=== PATIENT | female | born 1980 | race Caucasian/White ===

== ENCOUNTER 2021-11-25 08:54 | Outpatient (REF) | payer BC, SELFPAY ==
[2021-11-25 09:22] LABS: MANUAL DIFF FLAG NO
[2021-11-25 10:04] LABS: Basophils Absolute Auto 0.1 X10*3/uL (0.0-0.2); Eosinophils Absolute Auto 0.7 X10*3/uL (0.0-0.4); Eosinophils Percent Auto 12.4 % (0-4); Hemoglobin 13.2 g/dl (12.0-16.0); Imm Gran Abs Auto 0.01 X10*3/uL (0.00-0.03); Imm Gran Pct Auto 0.2 % (0.0-0.4); Lymphocytes Absolute Auto 1.7 X10*3/uL (1.2-4.9); Lymphocytes Percent Auto 28.4 % (20-40); Mean Corpuscular HGB Conc 32.2 g/dl (31.0-35.0); Mean Corpuscular Hemoglobin 30.4 pg (27.0-33.0); Mean Corpuscular Volume 94.5 fL (80.0-98.0); Mean Platelet Volume 9.9 fL (9.4-12.3); Monocytes Absolute Auto 0.5 X10*3/uL (0.1-1.2); Monocytes Percent Auto 7.8 % (2-11); Neutrophils Percent Auto 50.2 % (45-73); Platelet Count 322 X10*3/uL (160-400); Red Blood Count 4.34 X10*6/uL (4.20-5.50); Red Cell Distribution Width 11.8 % (11.0-16.0); White Blood Count 5.9 X10*3/uL (4.8-10.8)
[2021-11-25 10:10] LABS: INTERNATIONAL NORM RATIO 1.1 (0.9-1.1)
[2021-11-25 10:26] LABS: Alanine Aminotransferase 25 U/L (0-31); Albumin Level 4.2 g/dL (3.5-5.0); Alkaline Phosphatase 69 U/L (39-117); Anion Gap 12 (12-20); Aspartate Amino Transferase 28 U/L (5-31); Bilirubin Direct 0.3 mg/dL (0.0-0.5); Blood Urea Nitrogen 9 mg/dL (9-16); Calcium 9.5 mg/dL (8.4-10.2); Carbon Dioxide 25 mmol/L (22-29); Chloride 105 mmol/L (96-108); Cholesterol 235 mg/dL; Estimated Glomerular Filt Rate > 60; Glucose Fasting 86 mg/dL (60-99); HCG Quantitative < 2 mIU/mL; HDL Cholesterol 67 mg/dL; LDL Cholesterol Calculated 157 mg/dl; Potassium 4.1 mmol/L (3.3-5.1); Sodium 138 mmol/L (135-145); Total Protein 7.2 g/dL (6.5-8.0); Triglycerides 59 mg/dL
[2021-11-25 10:42] LABS: HBc Num1 0.07 S/CO (0.00-0.79); Hepatitis B Core Antibody Nonreactive (Nonreactive); ~HepC Num1 0.13 S/CO (0.00-0.79); ~Hepatitis B Surface Antibody REACTIVE (Nonreactive); ~Hepatitis C Antibody Nonreactive (Nonreactive)
[2021-11-25 11:17] LABS: HBsAGNum1 0.24 S/CO (0.00-0.99); HIV AB/AG Nonreactive (Nonreactive); HIV Num 1 0.07 S/CO (0.00-0.99); Hepatitis B Surface Antigen Negative (Negative)
[2021-11-27 08:41] LABS: Hepatitis A Antibody IgM 0.16 Index (0-0.79); ~Hepatitis A Antibody IgM Nonreactive (Nonreactive)
== END 2021-11-25 08:55 | disposition home or self-care (01) ==
LOC: HO.LAB 08:54
PROVIDERS: PCP Internal Medicine; Visit Provider Internal Medicine
DX: Z00.00 Encounter for general adult medical examination without abnormal findings (principal); Z13.0 Encounter for screening for diseases of the blood and blood-forming organs and certain disorders involving the immune mechanism; Z20.2 Contact with and (suspected) exposure to infections with a predominantly sexual mode of transmission; Z11.4 Encounter for screening for human immunodeficiency virus [HIV]
CPT/HCPCS: 36415; 80053; 80061; 80076; 82248; 84702; 85025; 85610; 86704; 86706; 86709; 86803; 87340; 87389

== ENCOUNTER 2021-12-03 09:10 | Outpatient (REF) | payer BC, SELFPAY ==
[2021-12-03 09:30] LABS: MANUAL DIFF FLAG NO
[2021-12-03 10:44] LABS: Basophils Absolute Auto 0.1 X10*3/uL (0.0-0.2); Basophils Percent Auto 0.7 % (0-2); Eosinophils Absolute Auto 0.7 X10*3/uL (0.0-0.4); Eosinophils Percent Auto 10.8 % (0-4); Hematocrit 40.7 % (37.0-47.0); Hemoglobin 13.3 g/dl (12.0-16.0); Imm Gran Abs Auto 0.01 X10*3/uL (0.00-0.03); Imm Gran Pct Auto 0.1 % (0.0-0.4); Lymphocytes Absolute Auto 1.7 X10*3/uL (1.2-4.9); Mean Corpuscular HGB Conc 32.7 g/dl (31.0-35.0); Mean Corpuscular Hemoglobin 30.7 pg (27.0-33.0); Mean Platelet Volume 10.3 fL (9.4-12.3); Monocytes Absolute Auto 0.4 X10*3/uL (0.1-1.2); Monocytes Percent Auto 6.3 % (2-11); Neutrophils Percent Auto 58.1 % (45-73); Platelet Count 306 X10*3/uL (160-400); Red Blood Count 4.33 X10*6/uL (4.20-5.50); Red Cell Distribution Width 11.8 % (11.0-16.0); White Blood Count 6.9 X10*3/uL (4.8-10.8)
[2021-12-03 10:52] LABS: Partial Thromboplastin Time 36.7 SEC (24.1-38.0)
[2021-12-03 11:23] LABS: Alanine Aminotransferase 29 U/L (0-31); Albumin Level 3.9 g/dL (3.5-5.0); Alkaline Phosphatase 75 U/L (39-117); Anion Gap 13 (12-20); Aspartate Amino Transferase 21 U/L (5-31); Bilirubin Total 0.6 mg/dL (0.0-1.0); Blood Urea Nitrogen 9 mg/dL (9-16); Calcium 9.4 mg/dL (8.4-10.2); Carbon Dioxide 24 mmol/L (22-29); Chloride 104 mmol/L (96-108); Cholesterol 220 mg/dL; Estimated Glomerular Filt Rate > 60; Glucose Fasting 87 mg/dL (60-99); HDL Cholesterol 60 mg/dL; LDL Cholesterol Calculated 147 mg/dl; Potassium 4.9 mmol/L (3.3-5.1); Sodium 136 mmol/L (135-145); Total Protein 6.9 g/dL (6.5-8.0); Triglycerides 66 mg/dL
== END 2021-12-03 09:11 | disposition home or self-care (01) ==
LOC: HO.LAB 09:10
PROVIDERS: PCP Internal Medicine; Visit Provider Internal Medicine
DX: Z01.818 Encounter for other preprocedural examination (principal); E11.9 Type 2 diabetes mellitus without complications
CPT/HCPCS: 36415; 80053; 80061; 85025; 85730

== ENCOUNTER 2023-04-09 08:54 | Outpatient (AMB) | payer BC, SELFPAY ==
--- NOTE | 2023-04-09 08:55 | A.OFFPC_ITS ---
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 Accompanied by: Self / Same As Patient Allergies No Known Allergies Allergy (Verified 04/09/23 08:56) Medication List - Last Reconciled 04/09/23 by Jesus Mott MD albuterol sulfate 1.25 mg (3 mL) inhalation QID PRN albuterol sulfate 90 mcg/actuation 2 puffs inhalation Q4-6H PRN 30 days methylprednisolone (Medrol (Titus)) PO PER PKG DIR nebulizers (Compact Compressor Nebulizer) As directed norgestimate-ethinyl estradiol 0.18/0.215/0.25 mg-25 mcg (Vik-Ur-Xjyvpb) 1 tab PO DAILY Tobacco use date assessed: 04/09/23 Dental Screening Dental Screen Date: 04/09/23 Did you have a dental visit in the last 12 months?: Yes Did you have a dental problem in the last 6 months where you did not have access to dental care?: No Was dental information given to patient?: Patient has dentist HPI Annual PE HPI Details asthma on rx [facility] Medical History (Updated 04/08/22 @ 10:26 by Jesus Mott MD) Asthma Physical exam Surgical History History of abdominoplasty History of tubal ligation Family History Mother No problems noted. Father No problems noted. Social History Housing: House Patient Tobacco Use Status: Never used Tobacco e-Cigarette/Vaping Use: Never Used Second Hand Smoke Exposure: No service: No Current occupational status: employed Current occupational exposures/hazards: No Cognitive needs: No Hearing needs: No Vision needs: Yes Questionnaire PHQ-9 Over the last 2 weeks, how often have you been bothered by any of the following problems? 1. Little interest or pleasure in doing things: not at all 2. Feeling down, depressed, or hopeless: not at all 3. Trouble falling or staying asleep, or sleeping too much: not at all 4. Feeling tired or having little energy: not at all 5. Poor appetite or overeating: not at all 6. Feeling bad about yourself - or that you are a failure or have let yourself or your family down: not at all 7. Trouble concentrating on things, such as reading the newspaper or watching television: not at all 8. Moving or speaking so slowly that other people could have noticed. Or the opposite - being so fidgety or restless that you have been moving around a lot more than usual: not at all 9. Thoughts that you would be better off or of hurting yourself in some way: not at all Total score: 0 Depression Screening Interpretation: Negative Source: Developed by Drs. Saulo Patino, Belinda Luna, Nikita Velarde and colleagues, with an educational darrion from [employer]. Thrive Questionnaire Date Thrive assessed: 04/09/23 I am a: Patient What is your living situation today?: I have a steady place to live Within the past 12 months, did the food you bought not last and you didn't have the money to get more?: Never true Within the past 12 months, did you worry whether your food would run out before you got money to buy more?: Never true Do you have trouble paying for medicines?: No Do you have trouble getting transportation to medical appointments?: No Do you have trouble paying your heating and electricity bill?: No Do you have trouble taking care of your child, family member or friend?: No Do you have trouble with day-to-day activities such as bathing, preparing meals, shopping, managing finances, etc.?: No Are you currently unemployed and looking for a job?: No Are you interested in more education?: No Currently or been in a relationship where the following occur: no concerns re ported AUDIT C Alcohol Use Questionnaire (AUDIT-C) 1. How often do you have a drink containing alcohol?: 2-4 times a month 2. How many drinks containing alcohol do you have on a typical day when you are drinking?: 3 or 4 3. How often do you have six or more drinks on one occasion?: Never Total Score: 3 Score Reviewed/Action Taken: Yes JETT-7 AMB Questionnaire JETT-7 Date JETT - 7 assessed: 04/09/23 Feeling nervous, anxious, or on edge: 0 = Not at all Not being able to stop or control worryin = Not at all Worrying too much about different things: 0 = Not at all Trouble relaxin = Not at all Being so restless that it is hard to sit still: 0 = Not at all Becoming easily annoyed or irritable: 0 = Not at all Feeling afraid as if something awful might happen: 0 = Not at all Total JETT-7 score (0-4 normal; 5-9 mild; 10-14 moderate; 15-21 severe): 0 Source: Developed by Drs. Saulo Patino, Belinda Luna, Nikita eVlarde and colleagues, with an educational darrion from [employer]. JETT-7 Assessment Billing JETT-7 Assessment Tool: JETT-7 Assessment 33329 Review of Systems Const Denies chills, Denies fatigue, Denies headache(s) and Denies weight loss Eyes Denies change in vision, Denies diplopia and Denies eye pain ENT Denies vertigo, Denies dizziness, Denies headache(s) and Denies nasal discharge Card Denies chest pain, Denies rapid heart rate and Denies dyspnea on exertion Resp Denies chest congestion, Denies cough, Denies pain with cough and Denies dyspnea on exertion GI Denies abdominal pain, Denies hematochezia and Denies change in bowel habits Musc Denies myalgias, Denies arthralgias and Denies joint swelling Skin/Breast Denies lesions and Denies unusual bruising Neuro Denies vertigo, Denies dizziness, Denies headache(s) and Denies focal weakness Endo Denies fatigue Physical exam (Primary Care) Vital Signs: Last Vital Signs Pulse 77 04/09/23 08:56 BP 122/70 04/09/23 08:56 Pulse Ox 99 04/09/23 08:56 Oxygen Delivery Method Room Air 04/09/23 08:56 BMI result Body Mass Index 26.0 Tobacco/Smoking Status: Tobacco use Status Tobacco use date assessed 04/09/23 04/09/23 09:02 Patient Tobacco Use Status Never used Tobacco 04/09/23 09:02 e-Cigarette/Vaping Use Never Used 04/09/23 09:02 PHQ-9: PHQ-9 Score PHQ-9: Total score 0 04/09/23 09:02 Depression Screening Interpretation: Negative Thrive Assessment: Date of Thrive Assessment Date Thrive assessed 04/09/23 04/09/23 09:02 Currently or been in a relationship where the following occur: no concerns reported Const General: cooperative, healthy appearing and no acute distress Orientation/consciousness: oriented to person, oriented to place and oriented to time HENMT Head: Yes normal to inspection, Yes normocephalic and Yes atraumatic Mouth: Normal oral and palatal mucosa present and tongue normal Throat: Yes posterior oropharynx normal and Yes uvula midline Eyes General: appearance normal, both eyes and all related structures Neck Neck: Yes normal visual inspection, Yes full ROM and Yes no lymphadenopathy Thyroid: Thyroid normal Carotids: normal carotid upstroke Chest Chest palpation & inspection: normal inspection of the chest Resp Effort & Inspection: normal respiratory effort and able to speak in complete sentences Auscultation: clear to auscultation bilaterally Cardio Jugular venous distension: no JVD Palpation: normal PMI Rate: regular rate Rhythm: regular rhythm Heart sounds: S1 normal heart sound present and S2 normal heart sound present GI Inspection: Yes normal to inspection Palpation (GI): Soft to palpation and No hepatosplenomegaly present Auscultation: normal bowel sounds General: Yes no CVA tenderness Back/Spine/Pelvis Back: no CVA tenderness Skin General skin exam: no rashes or lesions noted Neuro General: oriented to person, oriented to place and oriented to time Extrem General: Yes normal to inspection and Yes full ROM Assessment and Plan Assessment & Plan (1) Physical exam: Code(s): Z00.00 - Encounter for general adult medical examination without abnormal findings Plan: labs; sta le (2) Asthma: Code(s): J45.909 - Unspecified asthma, uncomplicated Plan: rx Orders: Orders Comprehensive [place]. Panel Fast Today N28.9 - Disorder of kidney and ureter, unspecified Lipid Panel Today E78.5 - Hyperlipidemia, unspecified Thyroid Stimulating Hormone Today E03.9 - Hypothyroidism, unspecified Complete Blood Count Auto Diff Today D64.9 - Anemia, unspecified Medications: New fluticasone propionate 110 mcg/actuation (Flovent HFA) 2 puffs inhalation BID 12 grams 8RF Refilled albuterol sulfate 1.25 mg (3 mL) inhalation QID PRN 75 mL 3RF shortness of breath or wheezing Coding Level of Care Code Est Pt Prev Care 40-64y(03237) Diagnoses Physical exam Z00.00 Asthma J45.909 Additional Codes JETT-7 Assessment Billing - JETT-7 Assessment Tool: JETT-7 Assessment 30585 ([id number]) PHQ-9 - 32567 - PHQ-9 Billing: Y ([id number])
[2023-04-09 08:56] VITALS: BP 122/70; PULSE 77; O2SAT 99; BMI 26.0
== END 2023-04-09 09:21 | disposition home or self-care (01) ==
PROVIDERS: PCP Internal Medicine; Visit Provider Internal Medicine
DX: Z00.00 Encounter for general adult medical examination without abnormal findings (principal); J45.909 Unspecified asthma, uncomplicated
CPT/HCPCS: 99396

== ENCOUNTER 2023-04-09 09:33 | Outpatient (REF) | payer BC, SELFPAY ==
[2023-04-09 09:44] LABS: MANUAL DIFF FLAG NO
[2023-04-09 10:01] LABS: Basophils Absolute Auto 0.1 X10*3/uL (0.0-0.2); Basophils Percent Auto 0.9 % (0-2); Eosinophils Absolute Auto 0.8 X10*3/uL (0.0-0.4); Eosinophils Percent Auto 10.2 % (0-4); Hematocrit 39.3 % (37.0-47.0); Hemoglobin 12.9 g/dl (12.0-16.0); Imm Gran Abs Auto 0.03 X10*3/uL (0.00-0.03); Imm Gran Pct Auto 0.4 % (0.0-0.4); Lymphocytes Absolute Auto 1.5 X10*3/uL (1.2-4.9); Mean Corpuscular HGB Conc 32.8 g/dl (31.0-35.0); Mean Corpuscular Hemoglobin 30.3 pg (27.0-33.0); Mean Corpuscular Volume 92.3 fL (80.0-98.0); Mean Platelet Volume 9.6 fL (9.4-12.3); Monocytes Absolute Auto 0.5 X10*3/uL (0.1-1.2); Monocytes Percent Auto 6.6 % (2-11); Neutrophils Absolute Auto 4.7 x10*3/uL (2.0-8.3); Neutrophils Percent Auto 61.9 % (45-73); Platelet Count 304 X10*3/uL (160-400); Red Blood Count 4.26 X10*6/uL (4.20-5.50); Red Cell Distribution Width 11.8 % (11.0-16.0); White Blood Count 7.6 X10*3/uL (4.8-10.8)
[2023-04-09 11:01] LABS: Alanine Aminotransferase 11 U/L (0-31); Albumin Level 3.9 g/dL (3.5-5.0); Alkaline Phosphatase 67 U/L (39-117); Anion Gap 12 (12-20); Aspartate Amino Transferase 13 U/L (5-31); Bilirubin Total 0.4 mg/dL (0.0-1.0); Blood Urea Nitrogen 11 mg/dL (9-16); Calcium 9.2 mg/dL (8.4-10.2); Carbon Dioxide 25 mmol/L (22-29); Chloride 108 mmol/L (96-108); Cholesterol 196 mg/dL; Estimated Glomerular Filt Rate > 60; Glucose Fasting 90 mg/dL (60-99); HDL Cholesterol 67 mg/dL; LDL Cholesterol Calculated 113 mg/dl; Potassium 4.7 mmol/L (3.3-5.1); Sodium 140 mmol/L (135-145); Total Protein 7.3 g/dL (6.5-8.0); Triglycerides 80 mg/dL
[2023-04-09 11:08] LABS: Thyroid Stimulating Hormone 0.81 uIU/mL (0.32-4.0)
== END 2023-04-09 09:34 | disposition home or self-care (01) ==
LOC: HO.LAB 09:33
PROVIDERS: PCP Internal Medicine; Visit Provider Internal Medicine
DX: D64.9 Anemia, unspecified (principal); N28.9 Disorder of kidney and ureter, unspecified; E03.9 Hypothyroidism, unspecified; E78.5 Hyperlipidemia, unspecified
CPT/HCPCS: 36415; 80053; 80061; 84443; 85025

== ENCOUNTER 2024-04-11 08:55 | Outpatient (AMB) | payer BC, SELFPAY ==
[2024-04-11 08:56] VITALS: BP 122/76; PULSE 76; BMI 26.7
--- NOTE | 2024-04-11 08:56 | MHC.PC.OV ---
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 Accompanied by: Self / Same As Patient Allergies No Known Allergies Allergy (Verified 04/11/24 08:57) Medication List - Last Reconciled 04/11/24 by Jesus Mott MD albuterol sulfate 1.25 mg (3 mL) inhalation QID PRN albuterol sulfate 90 mcg/actuation 2 puffs inhalation Q4-6H PRN 30 days fluticasone propionate 110 mcg/actuation (Flovent HFA) 2 puffs inhalation BID methylprednisolone (Medrol (Titus)) PO PER PKG DIR nebulizers (Compact Compressor Nebulizer) As directed norgestimate-ethinyl estradiol 0.18/0.215/0.25 mg-25 mcg (Fly-Va-Etattn) 1 tab PO DAILY scopolamine base 1 patch transdermal Q3D PRN Tobacco use date assessed: 04/11/24 Dental Screening Dental Screen Date: 04/11/24 Did you have a dental visit in the last 12 months?: Yes Did you have a dental problem in the last 6 months where you did not have access to dental care?: No Was dental information given to patient?: Patient has dentist HPI Annual Exam HPI Details asthma controlled [facility] Medical History (Updated 04/08/22 @ 10:26 by Jesus Mott MD) Asthma Physical exam Surgical History History of abdominoplasty History of tubal ligation Family History Mother No problems noted. Father No problems noted. Social History Housing: House Patient Tobacco Use Status: Never used Tobacco Tobacco use type: Cigarette e-Cigarette/Vaping Use: Never Used Second Hand Smoke Exposure: No service: No Current occupational status: employed Current occupational exposures/hazards: No Cognitive needs: No Hearing needs: No Vision needs: Yes Questionnaire PHQ-9 Over the last 2 weeks, how often have you been bothered by any of the following problems? 1. Little interest or pleasure in doing things: not at all 2. Feeling down, depressed, or hopeless: not at all 3. Trouble falling or staying asleep, or sleeping too much: not at all 4. Feeling tired or having little energy: not at all 5. Poor appetite or overeating: not at all 6. Feeling bad about yourself - or that you are a failure or have let yourself or your family down: not at all 7. Trouble concentrating on things, such as reading the newspaper or watching television: not at all 8. Moving or speaking so slowly that other people could have noticed. Or the opposite - being so fidgety or restless that you have been moving around a lot more than usual: not at all 9. Thoughts that you would be better off or of hurting yourself in some way: not at all Total score: 0 Depression Screening Interpretation: Negative Depression Screening Done: Yes 19149 - PHQ-9 Billing: Yes Source: Developed by Drs. Saulo Patino, Belinda Luna, Nikita Velarde and colleagues, with an educational darrion from [employer]. Thrive Questionnaire Date Thrive assessed: 04/11/24 I am a: Patient What is your living situation today?: I have a steady place to live Within the past 12 months, did the food you bought not last and you didn't have the money to get more?: Never true Within the past 12 months, did you worry whether your food would run out before you got money to buy more?: Never true Do you have trouble paying for medicines?: No Do you have trouble getting transportation to medical appointments?: No Do you have trouble paying your heating and electricity bill?: No Do you have trouble taking care of your child, family member or friend?: No Do you have trouble with day-to-day activities such as bathing, preparing meals, shopping, managing finances, etc.?: No Are you currently unemployed and looking for a job?: No Are you interested in more education?: No THRIVE Score: 0 AUDIT C Alcohol Use Questionnaire (AUDIT-C) 1. How often do you have a drink containing alcohol?: 2-4 times a month 2. How many drinks containing alcohol do you have on a typical day when you are drinking?: 3 or 4 3. How often do you have six or more drinks on one occasion?: Never Total Score: 3 Score Reviewed/Action Taken: Yes JETT-7 AMB Questionnaire JETT-7 Date JETT - 7 assessed: 04/11/24 Feeling nervous, anxious, or on edge: 0 = Not at all Not being able to stop or control worryin = Not at all Worrying too much about different things: 0 = Not at all Trouble relaxin = Not at all Being so restless that it is hard to sit still: 0 = Not at all Becoming easily annoyed or irritable: 0 = Not at all Feeling afraid as if something awful might happen: 0 = Not at all Total JETT-7 score (0-4 normal; 5-9 mild; 10-14 moderate; 15-21 severe): 0 Source: Developed by Drs. Saulo Patino, Belinda Luna, Nikita Velarde and colleagues, with an educational darrion from [employer]. JETT-7 Assessment Billing JETT-7 Assessment Tool: JETT-7 Assessment 42334 Review of Systems Const Denies chills, Denies fatigue, Denies headache(s) and Denies weight loss Eyes Denies change in vision, Denies diplopia and Denies eye pain ENT Denies vertigo, Denies dizziness, Denies headache(s) and Denies nasal discharge Card Denies chest pain, Denies rapid heart rate and Denies dyspnea on exertion Resp Denies chest congestion, Denies cough, Denies pain with cough and Denies dyspnea on exertion GI Denies abdominal pain, Denies hematochezia and Denies change in bowel habits Musc Denies myalgias, Denies arthralgias and Denies joint swelling Skin/Breast Denies lesions and Denies unusual bruising Neuro Denies vertigo, Denies dizziness, Denies headache(s) and Denies focal weakness Endo Denies fatigue Physical exam (Primary Care) Vital Signs: Last Vital Signs Pulse 76 04/11/24 08:56 BP 122/76 04/11/24 08:56 BMI result Body Mass Index 26.7 Tobacco/Smoking Status: Tobacco use Status Tobacco use date assessed 04/11/24 04/11/24 09:04 Patient Tobacco Use Status Never used Tobacco 04/11/24 09:04 Tobacco use type Cigarette 04/11/24 09:04 e-Cigarette/Vaping Use Never Used 04/11/24 09:04 PHQ-9: PHQ-9 Score PHQ-9: Total score 0 04/11/24 09:04 Depression Screening Interpretation: Negative Thrive Assessment: Date of Thrive Assessment Date Thrive assessed 04/11/24 04/11/24 09:04 Const General: cooperative, healthy appearing and no acute distress Orientation/consciousness: oriented to person, oriented to place and oriented to time HENMT Head: Yes normal to inspection, Yes normocephalic and Yes atraumatic Mouth: Normal oral and palatal mucosa present and tongue normal Throat: Yes posterior oropharynx normal and Yes uvula midline Eyes General: appearance normal, both eyes and all related structures Neck Neck: Yes normal visual inspection, Yes full ROM and Yes no lymphadenopathy Thyroid: Thyroid normal Carotids: normal carotid upstroke Chest Chest palpation & inspection: normal inspection of the chest Resp Effort & Inspection: normal respiratory effort and able to speak in complete sentences Auscultation: clear to auscultation bilaterally Cardio Jugular venous distension: no JVD Palpation: normal PMI Rate: regular rate Rhythm: regular rhythm Heart sounds: S1 normal heart sound present and S2 normal heart sound present GI Inspection: Yes normal to inspection Palpation (GI): Soft to palpation and No hepatosplenomegaly present Auscultation: normal bowel sounds General: Yes no CVA tenderness Back/Spine/Pelvis Back: no CVA tenderness Skin General skin exam: no rashes or lesions noted Neuro General: oriented to person, oriented to place and oriented to time Extrem General: Yes normal to inspection and Yes full ROM Assessment and Plan Assessment & Plan (1) Physical exam: Code(s): Z00.00 - Encounter for general adult medical examination without abnormal findings Plan: stable; do labs (2) Asthma: Code(s): J45.909 - Unspecified asthma, uncomplicated Plan: stable; same rx Orders: Orders Lipid Panel Today Z13.220 - Encounter for screening for lipoid disorders Complete Blood Count Auto Diff Today Z13.0 - Encounter for screening for diseases of the blood and blood-forming organs and certain disorders involving the immune mechanism Comprehensive [place]. Panel Fast Today Z13.9 - Encounter for screening, unspecified Medications: Refilled albuterol sulfate 90 mcg/actuation 2 puffs inhalation Q4-6H 30 days PRN 8.5 grams 5RF shortness of breath or wheezing Coding Level of Care Code Est Pt Prev Care 40-64y(92656) Diagnoses Physical exam Z00.00 Asthma J45.909 Additional Codes JETT-7 Assessment Billing - JETT-7 Assessment Tool: JETT-7 Assessment 87673 ([id number])
== END 2024-04-11 09:17 | disposition home or self-care (01) ==
PROVIDERS: PCP Internal Medicine; Visit Provider Internal Medicine
DX: Z00.00 Encounter for general adult medical examination without abnormal findings (principal); J45.909 Unspecified asthma, uncomplicated
CPT/HCPCS: 99396

== ENCOUNTER 2024-04-11 09:22 | Outpatient (REF) | payer BC, SELFPAY ==
[2024-04-11 09:34] LABS: MANUAL DIFF FLAG NO
[2024-04-11 10:08] LABS: Basophils Absolute Auto 0.1 X10*3/uL (0.0-0.2); Basophils Percent Auto 1.1 % (0-2); Eosinophils Absolute Auto 0.5 X10*3/uL (0.0-0.4); Eosinophils Percent Auto 7.9 % (0-4); Hematocrit 36.1 % (37.0-47.0); Hemoglobin 12.1 g/dl (12.0-16.0); Imm Gran Abs Auto 0.02 X10*3/uL (0.00-0.03); Imm Gran Pct Auto 0.3 % (0.0-0.4); Lymphocytes Absolute Auto 2.1 X10*3/uL (1.2-4.9); Lymphocytes Percent Auto 31.2 % (20-40); Mean Corpuscular HGB Conc 33.5 g/dl (31.0-35.0); Mean Corpuscular Hemoglobin 31.2 pg (27.0-33.0); Mean Platelet Volume 10.1 fL (9.4-12.3); Monocytes Absolute Auto 0.5 X10*3/uL (0.1-1.2); Monocytes Percent Auto 7.4 % (2-11); Neutrophils Absolute Auto 3.4 x10*3/uL (2.0-8.3); Neutrophils Percent Auto 52.1 % (45-73); Platelet Count 249 X10*3/uL (160-400); Red Blood Count 3.88 X10*6/uL (4.20-5.50); Red Cell Distribution Width 11.9 % (11.0-16.0); White Blood Count 6.6 X10*3/uL (4.8-10.8)
[2024-04-11 10:48] LABS: Alanine Aminotransferase 16 U/L (0-31); Albumin Level 3.5 g/dL (3.5-5.0); Alkaline Phosphatase 58 U/L (39-117); Anion Gap 10 (12-20); Aspartate Amino Transferase 20 U/L (5-31); Bilirubin Total 0.6 mg/dL (0.0-1.0); Blood Urea Nitrogen 10 mg/dL (9-16); Calcium 8.9 mg/dL (8.4-10.2); Carbon Dioxide 25 mmol/L (22-29); Chloride 107 mmol/L (96-108); Cholesterol 182 mg/dL (<200); Estimated Glomerular Filt Rate > 60; Glucose Fasting 87 mg/dL (60-99); HDL Cholesterol 64 mg/dL (>40); LDL Cholesterol Calculated 103 mg/dL (<100); Potassium 3.8 mmol/L (3.3-5.1); Sodium 138 mmol/L (135-145); Total Protein 6.5 g/dL (6.5-8.0); Triglycerides 78 mg/dL (<150)
== END 2024-04-11 09:23 | disposition home or self-care (01) ==
LOC: HO.LAB 09:22
PROVIDERS: PCP Internal Medicine; Visit Provider Internal Medicine
DX: Z13.220 Encounter for screening for lipoid disorders (principal); Z13.9 Encounter for screening, unspecified; Z13.0 Encounter for screening for diseases of the blood and blood-forming organs and certain disorders involving the immune mechanism
CPT/HCPCS: 36415; 80053; 80061; 85025

== ENCOUNTER 2025-04-13 08:28 | Outpatient (AMB) | payer OTHER, SELFPAY ==
--- NOTE | 2025-04-13 08:31 | MHC.PC.OV ---
Vital Signs 04/13/25 08:32 Height 5 ft 3 in Weight 141 lb 8 oz BMI 25.1 BP 110/70 Blood Pressure Location Lt brachial Position Sitting Pulse 78 Pulse Source Pulse Oximeter Temp 97.1 F Temp Source Temporal Artery Scan Pulse Oximetry (%) 96 Oxygen Delivery Method Room Air Intake Visit Reasons: physical Intake Note: Patient is here today for a physical. 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 per policy Accompanied by: Self / Same As Patient Allergies No Known Allergies Allergy (Verified 04/13/25 08:53) Medication List - Last Reconciled 04/13/25 by BOLIVAR Vigil albuterol sulfate 1.25 mg (3 mL) inhalation QID PRN albuterol sulfate 90 mcg/actuation 2 puffs inhalation Q4-6H PRN 30 days nebulizers (Compact Compressor Nebulizer) As directed norgestimate-ethinyl estradiol 0.18/0.215/0.25 mg-0.025 mg (Xid-Di-Rhtdkc) 1 tab PO DAILY scopolamine base 1 patch transdermal Q3D PRN Tobacco use date assessed: 04/13/25 Dental Screening Dental Screen Date: 04/13/25 Did you have a dental visit in the last 12 months?: Yes Did you have a dental problem in the last 6 months where you did not have access to dental care?: No Was dental information given to patient?: Patient has dentist HPI physical HPI Details Dentist: up to date Eye: up to date Snellen: Right: Left: Corrected vision: contacts and glasses STI screening: Colonoscopy:n/a Pap Smer: 2024 mammogram: due in two weeks, and already has been scheduled PHQ-9: Flu: no COVID: x3 Tdap: 2016 Diet: regular just eating healthier Exercise: working 3-4 times a week The patient is a 45-year-old female presenting for a routine wellness visit and management of asthma. The patient has a history of asthma, which is generally well-controlled. She occasionally requires a course of prednisone, particularly when her allergies exacerbate her asthma symptoms, although she has not needed this intervention this year. She maintains regular dental and eye care, wearing both contacts and glasses. Her preventative care is up to date, including a recent pap smear and a scheduled mammogram. The patient has received the flu vaccine and has completed the initial COVID-19 vaccination series along with a booster. Her last tetanus shot was in 2016, and she is aware of the need for a booster next year. She follows a general healthy diet and engages in regular physical activity, attending three workout sessions weekly. Previous blood work indicated slightly elevated cholesterol, and repeat labs have been ordered to monitor this. [facility] Medical History (Updated 04/13/25 @ 08:44 by BOLIVAR Vigil) Asthma Physical exam Surgical History History of abdominoplasty History of tubal ligation Family History Mother No problems noted. Father No problems noted. Social History Housing: House Alcohol intake: current Alcohol intake frequency: holidays/special occasions only Patient Tobacco Use Status: Never used Tobacco Tobacco use type: Cigarette e-Cigarette/Vaping Use: Never Used Second Hand Smoke Exposure: No service: No Current occupational status: employed Current occupational exposures/hazards: No Cognitive needs: No Hearing needs: No Vision needs: Yes Questionnaire PHQ-9 Over the last 2 weeks, how often have you been bothered by any of the following problems? 1. Little interest or pleasure in doing things: not at all 2. Feeling down, depressed, or hopeless: not at all 3. Trouble falling or staying asleep, or sleeping too much: not at all 4. Feeling tired or having little energy: not at all 5. Poor appetite or overeating: not at all 6. Feeling bad about yourself - or that you are a failure or have let yourself or your family down: not at all 7. Trouble concentrating on things, such as reading the newspaper or watching television: not at all 8. Moving or speaking so slowly that other people could have noticed. Or the opposite - being so fidgety or restless that you have been moving around a lot more than usual: not at all 9. Thoughts that you would be better off or of hurting yourself in some way: not at all Total score: 0 Depression Screening Interpretation: Negative Depression Screening Done: Yes 56007 - PHQ-9 Billing: Yes Source: Developed by Drs. Saulo Patino, Belinda Luna, Nikita Velarde and colleagues, with an educational darrion from [employer]. Thrive Questionnaire Date Thrive assessed: 04/06/25 I am a: Patient What is your living situation today?: I have a steady place to live Within the past 12 months, did the food you bought not last and you didn't have the money to get more?: Never true Within the past 12 months, did you worry whether your food would run out before you got money to buy more?: Never true Do you have trouble paying for medicines?: No Do you have trouble getting transportation to medical appointments?: No Do you have trouble paying your heating and electricity bill?: No Do you have trouble taking care of your child, family member or friend?: No Do you have trouble with day-to-day activities such as bathing, preparing meals, shopping, managing finances, etc.?: No Are you currently unemployed and looking for a job?: No Are you interested in more education?: No Please select the resources that you would like help with: None Currently or been in a relationship where the following occur: No concerns reported THRIVE Score: 0 AUDIT C Alcohol Use Questionnaire (AUDIT-C) 1. How often do you have a drink containing alcohol?: Monthly or less 2. How many drinks containing alcohol do you have on a typical day when you are drinking?: 1 or 2 3. How often do you have six or more drinks on one occasion?: Never Total Score: 1 JETT-7 AMB Questionnaire JETT-7 Date JETT - 7 assessed: 04/13/25 Feeling nervous, anxious, or on edge: 0 = Not at all Not being able to stop or control worryin = Not at all Worrying too much about different things: 0 = Not at all Trouble relaxin = Not at all Being so restless that it is hard to sit still: 0 = Not at all Becoming easily annoyed or irritable: 0 = Not at all Feeling afraid as if something awful might happen: 0 = Not at all Total JETT-7 score (0-4 normal; 5-9 mild; 10-14 moderate; 15-21 severe): 0 Source: Developed by Belinda Issa, Nikita Velarde and colleagues, with an educational darrion from [employer]. JETT-7 Assessment Billing JETT-7 Assessment Tool: JETT-7 Assessment 62955 Review of Systems Const Denies headache(s) Eyes Denies loss of vision ENT Denies vertigo, Denies dizziness, Denies headache(s) and Denies sore throat Card Denies chest pain, Denies leg edema and Denies lightheadedness Resp Denies cough, Denies hemoptysis and Denies wheezing GI Denies abdominal pain, Denies melena, Denies constipation, Denies diarrhea and Denies vomiting Denies urinary frequency, Denies dysuria and Denies urinary urgency Musc Denies arthralgias, Denies joint swelling, Denies numbness and Denies tingling Neuro Denies Abnormal speech present, Denies behavioral changes, Denies vertigo, Denies dizziness, Denies headache(s), Denies loss of vision, Denies memory loss, Denies numbness and Denies tingling Psych Denies anxiety, Denies behavioral changes, Denies depression, Denies memory loss and Denies panic attacks Tj/Lymph Denies easy bleeding and Denies easy bruising Aller/Immun Denies wheezing Physical exam (Primary Care) Tobacco/Smoking Status: Tobacco use Status Tobacco use date assessed 04/11/24 04/11/24 09:04 Patient Tobacco Use Status Never used Tobacco 04/11/24 09:04 Tobacco use type Cigarette 04/11/24 09:04 e-Cigarette/Vaping Use Never Used 04/11/24 09:04 Depression Screening Interpretation: Negative Thrive Assessment: Date of Thrive Assessment Date Thrive assessed 04/06/25 04/06/25 16:31 Currently or been in a relationship where the following occur: No concerns reported Const General: healthy appearing, no acute distress, alert and awake Nutritional Appearance: well nourished Orientation/consciousness: oriented to person, oriented to place and oriented to time HENMT Ears: TM's normal bilaterally General nose exam: Normal nasal mucous membranes and turbinates present Eyes Conjunctivae: conjunctivae normal Sclerae: sclerae normal Pupils: Equal, round and reactive pupils present Neck Neck: Yes no lymphadenopathy and Yes no JVD Thyroid: Thyroid normal Carotids: no bruits Resp Effort & Inspection: normal respiratory effort and not tachypneic Auscultation: no crackles, no rales, no rhonchi and no wheezes Cardio Rate: regular rate Rhythm: regular rhythm Heart sounds: no murmurs and normal S1 and S2 GI Palpation (GI): Soft to palpation, nontender, no hepatomegaly and no splenomegaly Auscultation: normal bowel sounds Skin General skin exam: no rashes or lesions noted and dry skin Neuro General: oriented to person, oriented to place and oriented to time Cranial nerves: Yes Equal, round and reactive pupils present Speech: No Abnormal speech present Gait exam (Neuro): Normal gait present Motor exam (neuro): no tremor noted Extrem Right upper extremity: full ROM Left upper extremity: full ROM Right lower extremity: full ROM; no edema Left lower extremity: full ROM; no edema Psych Mental Status: mental status grossly normal Speech and movement: Normal speech and movement present Affect: normal affect Attitude: cooperative Thought process: Normal thought process present Coding Level of Care Code Est Pt Prev Care 40-64y(14193) Diagnoses Physical exam Z00.00 Asthma, unspecified asthma severity, unspecified whether complicated, unspecified whether persistent J45.909 Asthma severity: unspecified severity Asthma persistence: unspecified Asthma complication type: unspecified Additional Codes PHQ-9 - 02003 - PHQ-9 Billing: Yes ([id number]) JETT-7 Assessment Billing - JETT-7 Assessment Tool: JETT-7 Assessment 27724 ([id number]) Time Spent (min) 36 Assessment & Plan Assessment & Plan (1) Physical exam: Code(s): Z00.00 - Encounter for general adult medical examination without abnormal findings Category: Medical (2) Asthma: Code(s): J45.909 - Unspecified asthma, uncomplicated Category: Medical Qualifiers: Asthma severity: unspecified severity Asthma persistence: unspecified Asthma complication type: unspecified Qualified Code(s): J45.909 - Unspecified asthma, uncomplicated Plan The patient's asthma is well-controlled, and no immediate changes to her management plan are necessary. She should continue her current regimen and contact the clinic if her symptoms worsen or if she requires additional medication. Preventative care measures are in place, with a recent pap smear completed and a mammogram scheduled. Vaccinations are up to date, including the flu and COVID-19 vaccines, and a tetanus booster is planned for next year. The patient is advised to maintain her healthy lifestyle, including regular exercise and a balanced diet. Repeat blood work is recommended to monitor her cholesterol levels. Patient was informed and verbally consented to the use of an ambient scribe for clinic note documentation during this visit. Orders: Orders Complete Blood Count Auto Diff Today J45.909 - Unspecified asthma, uncomplicated, Z00.00 - Encounter for general adult medical examination without abnormal findings Comprehensive [place]. Panel Fast Today J45.909 - Unspecified asthma, uncomplicated, Z.00 - Encounter for general adult medical examination without abnormal findings Lipid Panel Today J45.909 - Unspecified asthma, uncomplicated, Z00.00 - Encounter for general adult medical examination without abnormal findings TSH reflex Free T4 Today J45.909 - Unspecified asthma, uncomplicated, Z00.00 - Encounter for general adult medical examination without abnormal findings UA CC w/rflx Micro + Cult Today J45.909 - Unspecified asthma, uncomplicated, Z00.00 - Encounter for general adult medical examination without abnormal findings Vitamin D 25-OH Total Today J45.909 - Unspecified asthma, uncomplicated, Z00.00 - Encounter for general adult medical examination without abnormal findings Medications: Refilled albuterol sulfate 90 mcg/actuation 2 puffs inhalation Q4-6H PRN 8.5 grams 5RF shortness of breath or wheezing 30 days
[2025-04-13 08:32] VITALS: BP 110/70; PULSE 78; TEMP 36.2; O2SAT 96; BMI 25.1
== END 2025-04-13 08:56 | disposition home or self-care (01) ==
LOC: HO.HMCH 08:28
DX: Z00.00 Encounter for general adult medical examination without abnormal findings (principal); J45.909 Unspecified asthma, uncomplicated

== ENCOUNTER 2025-04-13 08:28 | Outpatient (REF) | payer OTHER, SELFPAY ==
[2025-04-13 09:21] LABS: MANUAL DIFF FLAG NO
[2025-04-13 09:31] LABS: Hematocrit 39.5 % (37.0-47.0); Hemoglobin 13.1 g/dl (12.0-16.0); Imm Gran Abs Auto 0.03 X10*3/uL (0.00-0.03); Imm Gran Pct Auto 0.3 % (0.0-0.4); Lymphocytes Absolute Auto 1.9 X10*3/uL (1.2-4.9); Mean Corpuscular HGB Conc 33.2 g/dl (31.0-35.0); Mean Corpuscular Hemoglobin 30.9 pg (27.0-33.0); Mean Corpuscular Volume 93.2 fL (80.0-98.0); NRBC Abs Auto 0.000 X10*3/uL (0.0-0.012); NRBC Pct Auto 0.0 /100WBC (0.0-0.2); Platelet Count 269 X10*3/uL (160-400); Red Blood Count 4.24 X10*6/uL (4.20-5.50); White Blood Count 9.9 X10*3/uL (4.8-10.8)
[2025-04-13 09:35] LABS: Appearance Urine Clear; Glucose Urine UA Negative (Negative); PH 6.5 (5.0-9.0); Specific Gravity - Urine 1.015 (1.005-1.025); UMIC TRIGGER UACC YES
[2025-04-13 10:36] LABS: Alanine Aminotransferase 13 U/L (0-31); Albumin Level 4.0 g/dL (3.5-5.0); Alkaline Phosphatase 76 U/L (39-117); Anion Gap 13 (12-20); Aspartate Amino Transferase 20 U/L (5-31); Blood Urea Nitrogen 10 mg/dL (9-16); Calcium 8.9 mg/dL (8.4-10.2); Carbon Dioxide 23 mmol/L (22-29); Chloride 106 mmol/L (96-108); Cholesterol 198 mg/dL (<200); Estimated Glomerular Filt Rate > 60; HDL Cholesterol 64 mg/dL (>40); Potassium 4.4 mmol/L (3.3-5.1); Sodium 138 mmol/L (135-145); Total Protein 7.1 g/dL (6.5-8.0); Triglycerides 86 mg/dL (<150)
== END 2025-04-13 08:29 | disposition home or self-care (01) ==
LOC: HO.LAB 08:28
DX: Z00.00 Encounter for general adult medical examination without abnormal findings (principal); J45.909 Unspecified asthma, uncomplicated
CPT/HCPCS: 36415; 80053; 80061; 81001; 82306; 84443; 85025; 96127